=== PATIENT | female | born 1995 | race Caucasian/White ===

== ENCOUNTER 2019-10-14 17:36 | Emergency (ER) | payer MEDICAID ==
[2019-10-14 17:54] VITALS: BP 126/77
[2019-10-14 18:16] LABS: RAPID STREP SCREEN Negative (Negative)
[2019-10-14] MEDS ORDERED: CLINDAMYCIN 150 MG CAPSULE PO STA (18:22)
[2019-10-14] MEDS ORDERED: CHERRY SYRUP 10 ML UDC PO ONE (18:22)
[2019-10-14] MEDS ORDERED: DEXAMETHASONE 10 MG/ML VIAL PO STA (18:22)
--- NOTE | 2019-10-14 18:25 | ED Physician Documentation ---
History of Present Illness - Stated complaint Stated Complaint: BILAT EAR PX, THROAT PX - Chief complaint Chief Complaint: Heent - History obtained from History obtained from: Patient, Family - History of Present Illness Timing: How many days ago (3) Pain level max: 5 Pain level now: 4 - Additonal information Additional information: 24-year-old female presents to the emergency department for sore throat for the past 3 days. Worse with swallowing better with rest. Intermittent subjective fevers. Mild cough. No significant rhinorrhea or congestion. No vomiting. She is not , breast-feeding or trying to become . Her boyfriend was recently diagnosed with strep. Review of Systems Ears: denies: Ear pain GI: denies: Vomiting, Diarrhea : denies: Now EGA Skin: denies: Rash PD PAST MEDICAL HISTORY - Past Medical History Past Medical History: No - Past Surgical History Past Surgical History: No - Present Medications Home Medications: Ambulatory Orders Medication Instructions Recorded Confirmed Clindamycin HCl [Clindamycin 300MG 300 mg PO Q6H #40 capsule 10/14/19 CAP] - Allergies Allergies/Adverse Reactions: Allergies Allergy/AdvReac Type Severity Reaction Status Date / Time acetaminophen Allergy Nausea Verified 10/14/19 17:51 [From Excedrin Migraine] amoxicillin Allergy Rash Verified 10/14/19 17:51 aspirin Allergy Nausea Verified 10/14/19 17:51 [From Excedrin Migraine] caffeine Allergy Nausea Verified 10/14/19 17:51 [From Excedrin Migraine] - Family History Family history: reports: Non contributory PD ED PE NORMAL - Vitals Vital signs reviewed: Yes - General General: Alert and oriented X 3, No acute distress - HEENT HEENT: Ears normal, Moist mucous membranes, Other (Posterior pharyngeal erythema with tonsillar exudates. Uvula midline. Normal phonation. No trismus.) - Neck Neck: Supple, no meningeal sign, Other (Shotty anterior lymphadenopathy) - Cardiac Cardiac: RRR - Respiratory Respiratory: No respiratory distress, Clear bilaterally - Derm Derm: Warm and dry, No rash - Extremities Extremities: No edema - Neuro Neuro: Alert and oriented X 3 Results - Vitals Vitals: Vital Signs - 24 hr 10/14/19 17:51 Temperature 36.9 C Heart Rate 91 Respiratory 16 Rate Blood Pressure 126/77 O2 Saturation 99 Oxygen O2 Source Room air - Labs Labs: Laboratory Tests 10/14/19 18:04 Group A Strep Rapid Negative PD MEDICAL DECISION MAKING - ED course Complexity details: reviewed results, re-evaluated patient, considered differential, d/w patient, d/w family ED course: 24-year-old female with a negative rapid strep test, but symptoms consistent with strep pharyngitis and she has been in close contact with her boyfriend who has been diagnosed with a positive strep test. Based on this we will treat her with antibiotics. Given dexamethasone here as well. Patient counseled regarding signs and symptoms for which I believe and urgent re-evaluation would be necessary. Patient with good understanding of and agreement to plan and is comfortable going home at this time This document was made in part using voice recognition software. While efforts are made to proofread this document, sound alike and grammatical errors may occur. Departure - Departure Disposition: 01 Home, Self Care Clinical Impression: Strep pharyngitis Condition: Good Instructions: ED Strep Pharyngitis Poss Follow-Up: Your,doctor in 1 week [Other] Prescriptions: Clindamycin HCl [Clindamycin 300MG CAP] 300 mg PO Q6H #40 capsule Comments: Take all antibiotics until gone. Return if you worsen. Follow-up with your doctor as needed for further care. Drink plenty of fluids. You can use Motrin or Tylenol as needed for pain.
== END 2019-10-14 18:31 | disposition home or self-care (01) ==
LOC: ED 17:36
DX: J02.0 Streptococcal pharyngitis (principal)
CPT/HCPCS: 87070; 87430; 99283; 99284; A9270

== ENCOUNTER 2020-03-18 18:15 | Emergency (ER) | payer MEDICAID ==
--- NOTE | 2020-03-18 20:56 | ED Physician Documentation ---
PD HPI SKIN - Stated complaint Stated Complaint: LT LEG WOUND - Chief complaint Chief Complaint: Wound - History obtained from History obtained from: Patient - History of Present Illness Timing - onset: Today (this afternoon) Timing - duration: Hours Timing - details: Gradual onset Pain level now: 1 Location: LLE Quality / character: Painful, Discolored, Raised, Swelling Associated symptoms: No: Fever, Myalgias, Joint pain Contributing factors: Unknown Similar symptoms before: Has not had sx before Recently seen: Not recently seen - Additional information Additional information: c/o focal redness, swelling, mild tenderness LLE since earlier this afternoon. Denies injury, denies h/o similar symptoms. Review of Systems Constitutional: denies: Fever Skin: reports: Rash PD PAST MEDICAL HISTORY - Past Medical History Past Medical History: No - Past Surgical History Past Surgical History: No - Present Medications Home Medications: Ambulatory Orders Medication Instructions Recorded Confirmed Clindamycin HCl [Clindamycin 300MG 300 mg PO Q6H #40 capsule 10/14/19 CAP] Sulfamethox/Trimeth 800/160 1 each PO BID #14 tablet 03/18/20 [Bactrim Ds 800/160] - Allergies Allergies/Adverse Reactions: Allergies Allergy/AdvReac Type Severity Reaction Status Date / Time acetaminophen Allergy Nausea Verified 03/18/20 18:21 [From Excedrin Migraine] amoxicillin Allergy Rash Verified 03/18/20 18:21 aspirin Allergy Nausea Verified 03/18/20 18:21 [From Excedrin Migraine] caffeine Allergy Nausea Verified 03/18/20 18:21 [From Excedrin Migraine] PD ED PE NORMAL - Vitals Vital signs reviewed: Yes - General General: Alert and oriented X 3, No acute distress, Well developed/nourished - Extremities Extremities: Normal ROM s pain, No calf tenderness / cord PD ED PE EXPANDED - Extremities KATHRYN LE visual: 1 - rash (confluent, raised erythema with sharp margins, mild tenderness and warm to touch, no fluctuance), swelling Results - Vitals Vitals: Vital Signs - 24 hr 03/18/20 03/18/20 18:21 21:13 Temperature 36.5 C 37 C Heart Rate 98 94 Respiratory 14 18 Rate Blood Pressure 136/76 H 130/80 O2 Saturation 98 97 Oxygen O2 Source Room air PD MEDICAL DECISION MAKING - ED course Complexity details: considered differential, d/w patient Departure - Departure Disposition: 01 Home, Self Care Clinical Impression: Cellulitis Qualifiers: Site of cellulitis: extremity Site of cellulitis of extremity: lower extremity Laterality: left Qualified Code(s): L03.116 - Cellulitis of left lower limb Condition: Good Instructions: ED Infec Skin Cellulitis Prescriptions: Sulfamethox/Trimeth 800/160 [Bactrim Ds 800/160] 1 each PO BID #14 tablet Comments: Follow up with your primary care provider in 4-5 days if not improving Discharge Date/Time: 03/18/20 21:14
[2020-03-18] MEDS ORDERED: SULFAMETH/TRIMETH DS 800/160 MG TABLET PO STA (21:06)
[2020-03-18 21:13] VITALS: BP 130/80
== END 2020-03-18 21:14 | disposition home or self-care (01) ==
LOC: ED 18:15
DX: L03.116 Cellulitis of left lower limb (principal)
CPT/HCPCS: 99282; 99283; A9270